=== PATIENT | female | born 1995 | race Caucasian/White ===

== ENCOUNTER 2017-05-22 15:01 | Emergency (ER) | payer OTHER ==
[2017-05-22 15:08] VITALS: BP 128/84; PULSE 68; TEMP 98.4; BMI 24.0
[2017-05-22] MEDS ORDERED: IBUPROFEN 600 MG TABLET (FP) PO ONE ×2 (15:45→15:48)
--- NOTE | 2017-05-22 15:56 | PDOC ---
History of Present Illness - General Chief Complaint: Injury Stated Complaint: RT ARM/HAND INJURY Time Seen by Provider: 05/22/17 15:11 History Source: Patient Exam Limitations: No Limitations - History of Present Illness Initial Comments: 05/22/17 15:48 pt states she crushed her right third digit in garage door approximately 90 minutes ago. Occurred: reports: just prior to arrival Upper Extremity Pain Location: right: 3rd finger (middle digit ) Method of Injury: reports: other (crushed) Past History - Past Medical History Allergies/Adverse Reactions: Allergies Allergy/AdvReac Type Severity Reaction Status Date / Time No Known Allergies Allergy Verified 05/22/17 15:07 Other medical history: denies - Psycho/Social/Smoking Cessation Hx Suicidal Ideation: No Smoking History: Never smoked Information on smoking cessation initiated: No Hx Alcohol Use: No Drug/Substance Use Hx: No Substance Use Type: None Review of Systems - Review of Systems Able to Perform ROS?: Yes Is the patient limited Romansh proficient: No Constitutional: No: Symptoms Reported HEENTM: No: Symptoms Reported Respiratory: No: Symptoms reported Cardiac (ROS): No: Symptoms Reported ABD/GI: No: Symptoms Reported : No: Symptoms Reported Musculoskeletal: Yes: Symptoms Reported Integumentary: No: Symptoms Reported *Physical Exam - Vital Signs Last Vital Signs Temp Pulse Resp BP Pulse Ox 98.4 F 68 17 128/84 99 05/22/17 15:05 05/22/17 15:05 05/22/17 15:05 05/22/17 15:05 05/22/17 15:05 - Physical Exam General Appearance: Yes: Nourished, Appropriately Dressed HEENT: positive: EOMI, LAINEY Neck: positive: Supple Respiratory/Chest: positive: Lungs Clear, Normal Breath Sounds Cardiovascular: positive: Regular Rhythm, Regular Rate Extremity: positive: Normal Capillary Refill, Tender (DIP third digit right hand , nail intact FROM mv intact pain with bending DIP flexion and extension, swelling noted to the tip ) Integumentary: positive: Normal Color, Dry, Warm Neurologic: positive: Fully Oriented, Alert, Normal Mood/Affect, Normal Response , Motor Strength 5/5 Procedures - Splinting Pre-Made Type: metal (right third digit) ED Treatment Course - ADDITIONAL ORDERS Additional order review: Laboratory Results 05/22/17 15:12 Urine HCG, Qual Negative - RADIOLOGY Radiology Studies Ordered: Category Date Time Status FINGER(S) RIGHT [RAD] Stat Radiology 05/22/17 15:45 Ordered *DC/Admit/Observation/Transfer Diagnosis at time of Disposition: Finger fracture Qualifiers: Encounter type: initial encounter Finger: middle finger Fracture type: closed Phalanx: distal Fracture alignment: nondisplaced Laterality: right Qualified Code(s): S62.662A - Nondisplaced fracture of distal phalanx of right middle finger, initial encounter for closed fracture - Discharge Dispostion Disposition: HOME Condition at time of disposition: Good - Referrals Referrals: Abdulaziz Malin MD [Staff Physician] - - Patient Instructions Additional Instructions: keep the finger splinted and taped at all times apply ice every 2hrs for 20 minutes for the next 2 days while awake take motrin 600-800mg every 6hrs for pain (over the counter advil, motrin or ibuprofen) follow with next week for follow up
== END 2017-05-22 16:14 | disposition home or self-care (01) ==
LOC: JERFT 15:01
PROC: 2W3JX1Z Immobilization of Right Finger using Splint (ICD-10-PCS; principal; 2017-05-22)
DX: S62.662A Nondisplaced fracture of distal phalanx of right middle finger, initial encounter for closed fracture (principal); W23.0XXA Caught, crushed, jammed, or pinched between moving objects, initial encounter; Y93.89 Activity, other specified; Y92.89 Other specified places as the place of occurrence of the external cause
CPT/HCPCS: 29130; 73140-TC-RT; 84703; 99281-25